=== PATIENT | female | born 1975 | race African-American/Black ===

== ENCOUNTER 2019-02-23 06:34 | Day surgery (SDC) | payer OTHER ==
[2019-02-23] MEDS ORDERED: Midazolam 1 MG/ML 2 ML SDV ONE (07:08)
[2019-02-23] MEDS ORDERED: Propofol 200 MG/20 ML SDV ONE (07:08)
[2019-02-23] MEDS ORDERED: fentaNYL 250 MCG/5 ML SDV ONE (07:08)
--- NOTE | 2019-02-23 07:21 | PCM.PREANE ---
Preanesthetic Assessment - Anesthesia/Transfusion/Family Hx Anesthesia History: Prior Anesthesia Without Reaction Family History of Anesthesia Reaction: No Transfusion History: No Prior Transfusion(s) Intubation History: Unknown - Review of Systems General: No Symptoms Pulmonary: No Symptoms Cardiovascular: No Symptoms Gastrointestinal: No Symptoms Neurological: No Symptoms Other: Reports: None - Physical Assessment Vital Signs: Last Vital Signs Temp 36.3 C 02/23/19 06:51 Pulse 72 02/23/19 06:51 Resp 16 02/23/19 06:51 BP 129/86 02/23/19 06:51 Pulse Ox 98 02/23/19 06:51 Height: 5 ft 5 in Weight: 82.554 kg ASA Class: 2 Mental Status: Alert & Oriented x3 Airway Class: Mallampati = 1 Dentition: Reports: Normal Dentition Thyro-Mental Finger Breadths: 3 Mouth Opening Finger Breadths: 3 ROM/Head Extension: Full Lungs: Clear to Auscultation, Normal Respiratory Effort Cardiovascular: Regular Rate, Regular Rhythm - Lab Values: Laboratory Last Values WBC 4.66 K/uL (4.0-11.0) 02/23/19 07:02 RBC 4.09 M/uL (4.30-5.90) L 02/23/19 07:02 Hgb 12.0 g/dL (12.0-16.0) 02/23/19 07:02 Hct 35.9 % (36.0-46.0) L 02/23/19 07:02 MCV 87.8 fL (80.0-98.0) 02/23/19 07:02 MCH 29.3 pg (27.0-32.0) 02/23/19 07:02 MCHC 33.4 g/dL (31.0-37.0) 02/23/19 07:02 RDW Std Deviation 41.2 fl (28.0-62.0) 02/23/19 07:02 RDW Coeff of Marisol 13 % (11.0-15.0) 02/23/19 07:02 Plt Count 349 K/uL (150-400) 02/23/19 07:02 MPV 9.10 fL (7.40-12.00) 02/23/19 07:02 Neut % (Auto) 48.9 % (48.0-80.0) 02/23/19 07:02 Lymph % (Auto) 35.0 % (16.0-40.0) 02/23/19 07:02 [place] % (Auto) 9.9 % (0.0-15.0) 02/23/19 07:02 Eos % (Auto) 5.6 % (0.0-7.0) 02/23/19 07:02 Baso % (Auto) 0.6 % (0.0-1.5) 02/23/19 07:02 Neut # (Auto) 2.3 K/uL (1.4-5.7) 02/23/19 07:02 Lymph # (Auto) 1.6 K/uL (0.6-2.4) 02/23/19 07:02 [place] # (Auto) 0.5 K/uL (0.0-0.8) 02/23/19 07:02 Eos # (Auto) 0.3 K/uL (0.0-0.7) 02/23/19 07:02 Baso # (Auto) 0.0 K/uL (0.0-0.1) 02/23/19 07:02 Nucleated RBC % 0.0 /100WBC 02/23/19 07:02 Nucleated RBCs # 0 K/uL 02/23/19 07:02 - Allergies Allergies/Adverse Reactions: Allergies Allergy/AdvReac Type Severity Reaction Status Date / Time No Known Allergies Allergy Verified 02/23/19 06:57 - Blood Blood Available: No - Anesthesia Plan Pre-Op Medication Ordered: None - Acknowledgements Anesthesia Type Planned: General Anesthesia Pt an Appropriate Candidate for the Planned Anesthesia: Yes Alternatives and Risks of Anesthesia Discussed w Pt/Guardian: Yes Pt/Guardian Understands and Agrees with Anesthesia Plan: Yes PreAnesthesia Questionnaire HEENT History: Reports: Other (See Below) Other HEENT History: wears glasses Cardiovascular History: Reports: Hypertension Respiratory History: Reports: None Gastrointestinal History: Reports: None Genitourinary History: Reports: None CLINICAL OPERATIONS MANAGER History: Reports: Fibroids, Musculoskeletal History: Reports: None Neurological History: Reports: None Psychiatric History: Reports: None Endocrine/Metabolic History: Reports: Obesity/BMI 30+ Hematologic History: Reports: None Immunologic History: Reports: None Oncologic (Cancer) History: Reports: None Dermatologic History: Reports: None - Past Surgical History Head Surgeries/Procedures: Reports: None HEENT Surgical History: Reports: None Cardiovascular Surgical History: Reports: None Respiratory Surgical History: Reports: None GI Surgical History: Reports: None Female Surgical History: Reports: None Endocrine Surgical History: Reports: None Neurological Surgical History: Reports: None Musculoskeletal Surgical History: Reports: Other (See Below) Other Musculoskeletal Surgeries/Procedures:: calcified bone removed from ouside of scalp Oncologic Surgical History: Reports: None Dermatological Surgical History: Reports: None - SUBSTANCE USE Smoking Status *Q: Never Smoker Recreational Drug Use History: No - HOME MEDS Home Medications: Home Meds Copper [Paragard T 380-A] 1 device VAG ONETIME 02/17/19 [History] amLODIPine Besylate [Amlodipine Besylate] 10 mg PO DAILY 02/17/19 [History] - CURRENT (IN HOUSE) MEDS Current Meds: Current Medications Discontinued Medications Fentanyl (Sublimaze) Confirm Administered Dose 250 mcg .ROUTE .STK-MED ONE Stop: 02/23/19 07:09 Midazolam HCl (Versed 1 Mg/Ml) Confirm Administered Dose 2 mg .ROUTE .STK-MED ONE Stop: 02/23/19 07:09 Propofol (Diprivan 20 Ml) Confirm Administered Dose 200 mg .ROUTE .STK-MED ONE Stop: 02/23/19 07:09
[2019-02-23] MEDS ORDERED: Rocuronium 100 MG/10 ML Syringe ONE (07:25)
[2019-02-23] MEDS ORDERED: Methylene Blue 50 MG/10 ML Ampule ONE (07:25)
[2019-02-23] MEDS ORDERED: Ondansetron 4 MG/2 ML SDV ONE (07:26)
[2019-02-23] MEDS ORDERED: Bupivacaine 0.25% 10 ML SDV ONE (07:26)
[2019-02-23] MEDS ORDERED: Dexamethasone 4 MG/ML 5 ML MDV ONE (07:26)
[2019-02-23] MEDS ORDERED: Fluorescein 5 ML Vial ONE (07:26)
[2019-02-23 07:28] LABS: BLOOD UREA NITROGEN,BUN 12 mg/dL (7.0-18.0); CARBON DIOXIDE,CO2 26.5 mmol/L (21.0-32.0); CHLORIDE,CL 107 mmol/L (98-107); GLUCOSE RANDOM 85 mg/dL (74-106); POTASSIUM,K 3.3 mmol/L (3.5-5.1); SODIUM,NA 142 mmol/L (136-145)
[2019-02-23] MEDS ORDERED: Glycopyrrolate 0.2 MG/ML SDV ONE ×2 (07:28→09:17)
[2019-02-23] MEDS ORDERED: Neostigmine Methylsulfate 1 MG/ML 5 ML Syringe ONE (07:28)
[2019-02-23] MEDS ORDERED: Octyl 2-Cyanoacrylate 1 Tube ONE ×3 (07:33→13:36)
[2019-02-23] MEDS ORDERED: ceFAZolin 1 GM Vial ONE (07:39)
[2019-02-23] MEDS ORDERED: Sodium Chloride 0.9% 20 ML ONE ×3 (07:40→13:36)
[2019-02-23] MEDS ORDERED: Sodium Chloride 0.9% 2.5 ML Syringe FLUSH PRN (07:57)
[2019-02-23] MEDS ORDERED: Sodium Chloride 0.9% 10 ML Syringe FLUSH PRN (07:57)
[2019-02-23] MEDS ORDERED: Sodium Chloride 0.9% 10 ML SDV IV PRN (07:57)
[2019-02-23] MEDS ORDERED: Phenylephrine/Normal Saline 100 MCG/ML 10 ML Syringe ONE (08:32)
[2019-02-23] MEDS ORDERED: Phenylephrine 1% 10 MG/ML SDV ONE (09:14)
[2019-02-23] MEDS ORDERED: fentaNYL 100 MCG/2 ML SDV IVPUSH PRN (12:12)
--- NOTE | 2019-02-23 13:27 | PCM.OPNOTE ---
- General Post-Op/Procedure Note Date of Surgery/Procedure: 02/23/19 Operative Procedure(s): Ventral hernia repair, umbilical hernia repair Findings: Ventral hernia to the right of midline. Hernia sac was large and contained small bowel. Able to be reduced safely into abdomen. Fascial defect measured 1 cm. 5mm umbilical defect. Pre Op Diagnosis: Ventral hernia, umbilical hernia Post-Op Diagnosis: same Anesthesia Technique: MAC Primary Surgeon: Beverly Silva Fluid Replacement, Intraop: 1,400 EBL in mLs: 5 Condition: Good
[2019-02-23] MEDS ORDERED: HYDROmorphone 2 MG/ML Syringe ONE (13:35)
[2019-02-23] MEDS ORDERED: Ondansetron 4 MG/2 ML SDV IVPUSH PRN (14:18)
[2019-02-23] MEDS ORDERED: Acetaminophen/oxyCODONE 325-5 MG Tab PO PRN (14:18)
[2019-02-23] MEDS ORDERED: Morphine 4 MG/ML Syringe IVPUSH PRN (14:18)
[2019-02-23] MEDS ORDERED: Promethazine 25 MG/ML SDV IM PRN (14:18)
[2019-02-23] MEDS ORDERED: Ketorolac 30 MG/ML SDV IVPUSH ONE (14:18)
[2019-02-23] MEDS ORDERED: Ketorolac 30 MG/ML SDV IVPUSH PRN (14:18)
--- NOTE | 2019-02-23 14:29 | PCM.OPNOTE ---
- General Post-Op/Procedure Note Date of Surgery/Procedure: 02/23/19 Operative Procedure(s): Repair of Ventral hernia defect - Dr Silva. Repair of Umbilical hernia defect - Dr Silva/Nimesh. Laparoscopic Hysterectomy. Bilateral salphingectomy. Left oophorectomy. Cystoscopy Findings: Laparoscopy - 10 cm fibroid uterus ( multiple subserosa fibroid) Intact Bladder , Bilateral ureteral jets Left dormoid cyst _ with sebaceous content Pre Op Diagnosis: Abnormal uterine bleeding secondary to fibroid uterus. Left Dermoid cyst - 5cm. Ventral and Umbilical hernia Post-Op Diagnosis: same Anesthesia Technique: General ET Tube Primary Surgeon: Lexii Brooks Secondary Surgeon: Ayaz Wooten Pathology: Uterus , tubes , Left ovaries Fluid Replacement, Intraop: 2,200 Output, Urine Amount: 600 EBL in mLs: 200 Complications: None Condition: Good Free Text/Narrative:: Intake & Output 02/22/19 02/23/19 02/23/19 22:59 06:59 14:59 Intake Total 1400 Balance 1400
[2019-02-23] MEDS: Metoclopramide 10 MG/2 ML SDV IVPUSH SCH ×2 (14:57→22:14)
--- NOTE | 2019-02-23 15:02 | PCM.SN ---
- Free Text/Narrative Note: I was called bedside after the case to evaluate patient. She was complaining of left upper extremity tenderness where the blood pressure cuff was during the case. She felt weak overall. Her vitals were stable in PACU. She was awake and alert. She had no sensory deficits. Her flexion and extension were intact on both upper extremities. She had FROM of both wrists and hands. Radial pulses were strong bilaterally. She complains of subjective discomfort with flexion of her left bicep. Will continue to monitor her LUE. No blood pressure measurements or draws from the left arm as a precaution. Ok to go to floor.
--- NOTE | 2019-02-23 15:32 | PCM.POSTAN ---
POST ANESTHESIA ASSESSMENT - MENTAL STATUS Mental Status: Alert, Oriented - VITAL SIGNS Vital Signs: Last Vital Signs Temp 36.7 C 02/23/19 14:03 Pulse 72 02/23/19 15:12 Resp 12 02/23/19 15:12 BP 125/75 02/23/19 15:12 Pulse Ox 96 02/23/19 15:12 - RESPIRATORY Respiratory Status: Respiratory Rate WNL, Airway Patent, O2 Saturation Stable - CARDIOVASCULAR CV Status: Pulse Rate WNL, Blood Pressure Stable - GASTROINTESTINAL GI Status: No Symptoms - PAIN Pain Score: 5 - POST OP HYDRATION Hydration Status: Adequate & Stable - OBSERVATIONS Free Text/Narrative:: generalized weakness otherwise no problems
[2019-02-23] MEDS ORDERED: Acetaminophen 500 MG Tab PO ONE (18:00)
[2019-02-23] MEDS ORDERED: Gabapentin 300 MG Cap PO ONE (19:24)
[2019-02-23] MEDS: Acetaminophen/oxyCODONE 325-5 MG Tab PO PRN (22:23)
[2019-02-24] MEDS ORDERED: Ibuprofen 800 MG Tab PO ONE (01:00)
[2019-02-24] MEDS: Acetaminophen/oxyCODONE 325-5 MG Tab PO PRN (03:57)
[2019-02-24] MEDS: Metoclopramide 10 MG/2 ML SDV IVPUSH SCH (05:43)
[2019-02-24 06:32] LABS: BLOOD UREA NITROGEN,BUN 14 mg/dL (7.0-18.0); CARBON DIOXIDE,CO2 25.5 mmol/L (21.0-32.0); CHLORIDE,CL 106 mmol/L (98-107); GLUCOSE RANDOM 87 mg/dL (74-106); POTASSIUM,K 3.5 mmol/L (3.5-5.1); SODIUM,NA 141 mmol/L (136-145)
[2019-02-24] MEDS ORDERED: Sodium Chloride 0.9% 1,000 ML IV ONE (07:31)
--- NOTE | 2019-02-24 08:40 | PCM48HPAN ---
Post Anesthesia Note - EVALUATION WITHIN 48HRS OF ANESTHETIC Vital Signs in Normal Range: Yes Patient Participated in Evaluation: Yes Respiratory Function Stable: Yes Airway Patent: Yes Hydration Status Stable: Yes Pain Control Satisfactory: Yes Nausea and Vomiting Control Satisfactory: Yes Mental Status Recovered: Yes Vital Signs: Last Vital Signs Temp 36.5 C 02/24/19 07:15 Pulse 68 02/24/19 07:15 Resp 16 02/24/19 07:15 BP 112/64 02/24/19 07:15 Pulse Ox 94 L 02/24/19 07:15 - COMMENTS/OBSERVATIONS Free Text/Narrative:: Anes Note This patietn reported significant pain, numbness and weakness of left shoulder and left arm upon emerging from anesthesia. However, these symptoms have resolved this morning. Hand grasps left and right are strong and equal. Range of motion right and left arm are normal. Sensation of right and left arm are normal. No obvious continued neurological issues of right or left arm or shoulder. 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
--- NOTE | 2019-02-24 09:05 | PCM.SURGPN ---
- General Info Date of Service: 02/24/19 Date of Surgery/Procedure: 02/23/19 POD#: 1 Functional Status: Reports: Pain Controlled, Tolerating Diet, Ambulating, Other (No LUE arm discomfort swelling or pain ). Denies: Urinating (has not urinated since last night when jenkins catheter was removed. Has been drinking water. ) - Review of Systems General: Reports: No Symptoms HEENT: Reports: No Symptoms Pulmonary: Reports: No Symptoms Cardiovascular: Reports: No Symptoms Gastrointestinal: Reports: No Symptoms Genitourinary: Reports: No Symptoms Musculoskeletal: Reports: No Symptoms - Patient Data Vitals - Most Recent: Last Vital Signs Temp 36.5 C 02/24/19 07:15 Pulse 68 02/24/19 07:15 Resp 16 02/24/19 07:15 BP 112/64 02/24/19 07:15 Pulse Ox 94 L 02/24/19 07:15 Weight - Most Recent: 82.554 kg I&O - Last 24 Hours: Intake & Output 02/23/19 02/24/19 02/24/19 22:59 06:59 14:59 Intake Total 2750 950 Output Total 530 650 Balance 2220 300 Lab Results Last 24 Hrs: Laboratory Results - last 24 hr 02/24/19 02/24/19 Range/Units 05:30 05:30 WBC 10.90 (4.0-11.0) K/uL RBC 3.82 L (4.30-5.90) M/uL Hgb 11.2 L (12.0-16.0) g/dL Hct 34.4 L (36.0-46.0) % MCV 90.1 (80.0-98.0) fL MCH 29.3 (27.0-32.0) pg MCHC 32.6 (31.0-37.0) g/dL RDW Std Deviation 43.3 (28.0-62.0) fl RDW Coeff of Marisol 13 (11.0-15.0) % Plt Count 334 (150-400) K/uL MPV 9.50 (7.40-12.00) fL Neut % (Auto) 74.7 (48.0-80.0) % Lymph % (Auto) 15.7 L (16.0-40.0) % [place] % (Auto) 9.2 (0.0-15.0) % Eos % (Auto) 0.2 (0.0-7.0) % Baso % (Auto) 0.2 (0.0-1.5) % Neut # (Auto) 8.2 H (1.4-5.7) K/uL Lymph # (Auto) 1.7 (0.6-2.4) K/uL [place] # (Auto) 1.0 H (0.0-0.8) K/uL Eos # (Auto) 0.0 (0.0-0.7) K/uL Baso # (Auto) 0.0 (0.0-0.1) K/uL Nucleated RBC % 0.0 /100WBC Nucleated RBCs # 0 K/uL Sodium 141 (136-145) mmol/L Potassium 3.5 (3.5-5.1) mmol/L Chloride 106 (98-107) mmol/L Carbon Dioxide 25.5 (21.0-32.0) mmol/L BUN 14 (7.0-18.0) mg/dL Creatinine 0.9 (0.6-1.0) mg/dL Est Cr Clr Drug Dosing 73.27 mL/min Estimated GFR (MDRD) > 60.0 ml/min Glucose 87 (74-106) mg/dL Calcium 8.3 L (8.5-10.1) mg/dL Med Orders - Current: Current Medications Ketorolac Tromethamine (Toradol) 30 mg IVPUSH Q6H PRN PRN Reason: Pain (severe 7-10) Stop: 02/28/19 14:18 Metoclopramide HCl (Reglan) 10 mg IVPUSH Q8H [facility] Last Admin: 02/24/19 05:43 Dose: 10 mg Morphine Sulfate (Morphine) 4 mg IVPUSH Q2H PRN PRN Reason: Pain (severe 7-10) Last Admin: 02/23/19 16:50 Dose: 4 mg Ondansetron HCl (Zofran) 4 mg IVPUSH Q6H PRN PRN Reason: Nausea/Vomiting Oxycodone/Acetaminophen (Percocet 325-5 Mg) 1 tab PO Q4H PRN PRN Reason: Pain (moderate 4-6) Oxycodone/Acetaminophen (Percocet 325-5 Mg) 2 tab PO Q4H PRN PRN Reason: Pain (moderate 4-6) Last Admin: 02/24/19 03:57 Dose: 2 tab Promethazine HCl (Phenergan) 25 mg IM Q6H PRN PRN Reason: Nausea/Vomiting Sodium Chloride (Saline Flush) 10 ml FLUSH ASDIRECTED PRN PRN Reason: Keep Vein Open Sodium Chloride (Saline Flush) 2.5 ml FLUSH ASDIRECTED PRN PRN Reason: Keep Vein Open Sodium Chloride (Normal Saline) 10 ml IV ASDIRECTED PRN PRN Reason: IV Use Discontinued Medications Acetaminophen (Tylenol Extra Strength) 1,000 mg PO ONETIME ONE Stop: 02/23/19 18:01 Last Admin: 02/23/19 18:14 Dose: 1,000 mg Bupivacaine HCl (Sensorcaine-Mpf 0.25%) Confirm Administered Dose 30 ml .ROUTE .STK-MED ONE Stop: 02/23/19 07:27 Cefazolin Sodium (Ancef) Confirm Administered Dose 2 gm .ROUTE .STK-MED ONE Stop: 02/23/19 07:40 Dexamethasone (Dexamethasone) Confirm Administered Dose 20 mg .ROUTE .STK-MED ONE Stop: 02/23/19 07:27 Fentanyl (Sublimaze) Confirm Administered Dose 250 mcg .ROUTE .STK-MED ONE Stop: 02/23/19 07:09 Fentanyl (Sublimaze) 50 mcg IVPUSH Q5M PRN PRN Reason: Pain (severe 7-10) Stop: 02/23/19 15:00 Fluorescein Sodium (Ak-Fluor) Confirm Administered Dose 5 ml .ROUTE .STK-MED ONE Stop: 02/23/19 07:27 Gabapentin (Neurontin) 600 mg PO ONETIME ONE Stop: 02/23/19 19:25 Last Admin: 02/23/19 20:00 Dose: 600 mg Glycopyrrolate (Robinul) Confirm Administered Dose 0.4 mg .ROUTE .STK-MED ONE Stop: 02/23/19 07:29 Glycopyrrolate (Robinul) Confirm Administered Dose 0.2 mg .ROUTE .STK-MED ONE Stop: 02/23/19 09:18 Hydromorphone HCl (Dilaudid) Confirm Administered Dose 2 mg .ROUTE .STK-MED ONE Stop: 02/23/19 13:36 Sodium Chloride (Normal Saline) Confirm Administered Dose 20 mls @ as directed .ROUTE .STK-MED ONE Stop: 02/23/19 07:41 Sodium Chloride (Normal Saline) Confirm Administered Dose 20 mls @ as directed .ROUTE .STK-MED ONE Stop: 02/23/19 10:34 Sodium Chloride (Normal Saline) Confirm Administered Dose 20 mls @ as directed .ROUTE .STK-MED ONE Stop: 02/23/19 13:37 Sodium Chloride (Normal Saline) 1,000 mls @ 1,000 mls/hr IV .Bolus ONE Stop: 02/24/19 08:30 Last Admin: 02/24/19 08:05 Dose: 1,000 mls/hr Ibuprofen (Motrin) 800 mg PO ONETIME ONE Stop: 02/24/19 01:01 Ketorolac Tromethamine (Toradol) 30 mg IVPUSH ONETIME ONE Stop: 02/23/19 14:19 Last Admin: 02/23/19 14:50 Dose: 30 mg Lidocaine HCl (Xylocaine-Mpf 1%) Confirm Administered Dose 5 ml .ROUTE .STK-MED ONE Stop: 02/23/19 07:26 Methylene Blue (Provayblue) Confirm Administered Dose 50 mg .ROUTE .STK-MED ONE Stop: 02/23/19 07:26 Midazolam HCl (Versed 1 Mg/Ml) Confirm Administered Dose 2 mg .ROUTE .STK-MED ONE Stop: 02/23/19 07:09 Neostigmine Methylsulfate (Neostigmine) Confirm Administered Dose 5 mg .ROUTE .STK-MED ONE Stop: 02/23/19 07:29 Octyl Cyanoacrylate (Dermabond Advance) Confirm Administered Dose 1 applic .ROUTE .STK-MED ONE Stop: 02/23/19 07:34 Octyl Cyanoacrylate (Dermabond Advance) Confirm Administered Dose 1 applic .ROUTE .STK-MED ONE Stop: 02/23/19 08:51 Octyl Cyanoacrylate (Dermabond Advance) Confirm Administered Dose 1 applic .ROUTE .STK-MED ONE Stop: 02/23/19 13:37 Ondansetron HCl (Zofran) Confirm Administered Dose 4 mg .ROUTE .STK-MED ONE Stop: 02/23/19 07:27 Phenylephrine HCl (Phenylephrine In Ns 100 Mcg/Ml) Confirm Administered Dose 1 mg .ROUTE .STK-MED ONE Stop: 02/23/19 08:33 Phenylephrine HCl (Casey-Synephrine) Confirm Administered Dose 10 mg .ROUTE .STK- MED ONE Stop: 02/23/19 09:15 Propofol (Diprivan 20 Ml) Confirm Administered Dose 200 mg .ROUTE .STK-MED ONE Stop: 02/23/19 07:09 Rocuronium Evans (Zemuron) Confirm Administered Dose 100 mg .ROUTE .STK-MED ONE Stop: 02/23/19 07:26 Succinylcholine Chloride (Succinylcholine Chloride) Confirm Administered Dose 200 mg .ROUTE .STK-MED ONE Stop: 02/23/19 07:26 - Exam Wound/Incisions: Dressing Dry and Intact, No Drainage General: Alert, Oriented HEENT: Pupils Equal, Pupils Reactive Lungs: Clear to Auscultation Cardiovascular: Regular Rhythm GI/Abdominal Exam: Soft, Non-Tender, No Distention, No Mass Sepsis Event Note - Evaluation Sepsis Screening Result: No Definite Risk - Focused Exam Vital Signs: Vital Signs Temp Pulse Resp BP Pulse Ox 02/24/19 07:15 36.5 C 68 16 112/64 94 L 02/24/19 04:00 36.8 C 73 16 103/62 95 02/23/19 23:12 36.6 C 73 16 105/60 98 Date Exam was Performed: 02/24/19 Time Exam was Performed: 08:59 - Problem List & Annotations (1) Ventral hernia SNOMED Code(s): 001191534 Code(s): K43.9 - VENTRAL HERNIA WITHOUT OBSTRUCTION OR GANGRENE Status: Acute Current Visit: Yes (2) Leg skin lesion, right SNOMED Code(s): 134594196, 849234303 Code(s): L98.9 - DISORDER OF THE SKIN AND SUBCUTANEOUS TISSUE, UNSPECIFIED Status: Acute Current Visit: Yes (3) Umbilical hernia SNOMED Code(s): 323538192 Code(s): K42.9 - UMBILICAL HERNIA WITHOUT OBSTRUCTION OR GANGRENE Status: Acute Current Visit: Yes (4) Dermoid cyst SNOMED Code(s): 290897862 Code(s): D36.9 - BENIGN NEOPLASM, UNSPECIFIED SITE Status: Acute Current Visit: Yes (5) S/P laparoscopic hysterectomy SNOMED Code(s): 553703199, 053337534, 513283190 Code(s): Z90.710 - ACQUIRED ABSENCE OF BOTH CERVIX AND UTERUS Status: Acute Current Visit: Yes - Problem List Review Problem List Initiated/Reviewed/Updated: Yes - My Orders Last 24 Hours: Active Orders 24 hr Category Date Time Status Patient Status [ADT] Routine ADT 02/23/19 14:18 Active Antiembolic Devices [RC] PER UNIT ROUTINE Care 02/23/19 14:19 Active Communication Order [RC] DAILY Care 02/23/19 15:03 Active Notify Provider Intake and Out [RC] ASDIRECTED Care 02/23/19 14:18 Active Notify Provider Vital Signs [RC] ASDIRECTED Care 02/23/19 14:18 Active Oxygen Therapy [RC] ASDIRECTED Care 02/23/19 14:18 Active RT Incentive Spirometry [RC] Q2HWA Care 02/23/19 14:18 Active Up With Assistance [RC] PER UNIT ROUTINE Care 02/23/19 14:18 Active Up ad Tess [RC] PER UNIT ROUTINE Care 02/23/19 14:18 Active Urinary Catheter Removal [RC] Per Unit Routine Care 02/23/19 14:18 Active Acetaminophen/oxyCODONE [Percocet 325-5 MG] Med 02/23/19 14:18 Active 1 tab PO Q4H PRN Acetaminophen/oxyCODONE [Percocet 325-5 MG] Med 02/23/19 14:18 Active 2 tab PO Q4H PRN Ketorolac [Toradol] Med 02/23/19 14:18 Active 30 mg IVPUSH Q6H PRN Metoclopramide [Reglan] Med 02/23/19 14:30 Active 10 mg IVPUSH Q8H Morphine Med 02/23/19 14:18 Active 4 mg IVPUSH Q2H PRN Ondansetron [Zofran] Med 02/23/19 14:18 Active 4 mg IVPUSH Q6H PRN Promethazine [Phenergan] Med 02/23/19 14:18 Active 25 mg IM Q6H PRN Peripheral IV Discontinue [OM.PC] Routine Oth 02/23/19 14:18 Ordered Sequential Compression Device [OM.PC] Per Unit Routine Oth 02/23/19 14:18 Ordered Resuscitation Status Routine Resus Stat 02/23/19 14:18 Ordered Medication Orders Ketorolac Tromethamine (Toradol) 30 mg IVPUSH Q6H PRN PRN Reason: Pain (severe 7-10) Stop: 02/28/19 14:18 Metoclopramide HCl (Reglan) 10 mg IVPUSH Q8H [facility] Last Admin: 02/24/19 05:43 Dose: 10 mg Admin: 02/23/19 22:14 Dose: 10 mg Admin: 02/23/19 14:57 Dose: 10 mg Morphine Sulfate (Morphine) 4 mg IVPUSH Q2H PRN PRN Reason: Pain (severe 7-10) Last Admin: 02/23/19 16:50 Dose: 4 mg Ondansetron HCl (Zofran) 4 mg IVPUSH Q6H PRN PRN Reason: Nausea/Vomiting Oxycodone/Acetaminophen (Percocet 325-5 Mg) 1 tab PO Q4H PRN PRN Reason: Pain (moderate 4-6) Oxycodone/Acetaminophen (Percocet 325-5 Mg) 2 tab PO Q4H PRN PRN Reason: Pain (moderate 4-6) Last Admin: 02/24/19 03:57 Dose: 2 tab Admin: 02/23/19 22:23 Dose: 2 tab Promethazine HCl (Phenergan) 25 mg IM Q6H PRN PRN Reason: Nausea/Vomiting Sodium Chloride (Saline Flush) 10 ml FLUSH ASDIRECTED PRN PRN Reason: Keep Vein Open Sodium Chloride (Saline Flush) 2.5 ml FLUSH ASDIRECTED PRN PRN Reason: Keep Vein Open Sodium Chloride (Normal Saline) 10 ml IV ASDIRECTED PRN PRN Reason: IV Use - Plan Plan (Free Text/Narrative):: I will give patient a 1L fluid bolus this am. She did not have fluids running last night and is likely a little dry this morning. Labs show stable BUN/Cr. Hgb is slightly below normal likely due to surgical blood loss. Patient otherwise feeling well. Can be discharged home per gynecology. Post operative instructions for surgery: Pain: Po narcotics per gynecology. Ok with ibuprofen from my standpoint starting today. Lifting restrictions: No lifting >10lb for 6 weeks after surgery. Bandages: Leave dressings on until tomorrow morning. Ok to remove after that. There is dermabond over my incisions. Leave in place for one week then ok to start picking off after that. Ok to shower tomorrow morning after removing dressings. No soaking tub bath or swimming for 2 weeks. Diet: As tolerated No driving for one week. Follow up in 2 weeks in my clinic or sooner if concerns. Appreciate gynecology's coordination in care of this patient.
--- NOTE | 2019-02-24 11:03 | PCM.SURGPN ---
- General Info Date of Service: 02/24/19 Date of Surgery/Procedure: 02/23/19 POD#: 1 Post-Op Diagnosis: AUB secondary to fibroid. Left dermoid cyst. Ventral and Umbilical hernia Functional Status: Reports: Pain Controlled, Tolerating Diet, Ambulating, Urinating - Review of Systems General: Reports: No Symptoms HEENT: Reports: No Symptoms Pulmonary: Reports: No Symptoms Cardiovascular: Reports: No Symptoms Gastrointestinal: Reports: No Symptoms Genitourinary: Reports: No Symptoms Musculoskeletal: Reports: No Symptoms Skin: Reports: No Symptoms Neurological: Reports: No Symptoms Psychiatric: Reports: No Symptoms - Patient Data Vitals - Most Recent: Last Vital Signs Temp 36.5 C 02/24/19 07:15 Pulse 68 02/24/19 07:15 Resp 16 02/24/19 07:15 BP 112/64 02/24/19 07:15 Pulse Ox 94 L 02/24/19 07:15 Weight - Most Recent: 82.554 kg I&O - Last 24 Hours: Intake & Output 02/23/19 02/24/19 02/24/19 22:59 06:59 14:59 Intake Total 2750 950 Output Total 530 650 Balance 2220 300 Lab Results Last 24 Hrs: Laboratory Results - last 24 hr 02/24/19 02/24/19 Range/Units 05:30 05:30 WBC 10.90 (4.0-11.0) K/uL RBC 3.82 L (4.30-5.90) M/uL Hgb 11.2 L (12.0-16.0) g/dL Hct 34.4 L (36.0-46.0) % MCV 90.1 (80.0-98.0) fL MCH 29.3 (27.0-32.0) pg MCHC 32.6 (31.0-37.0) g/dL RDW Std Deviation 43.3 (28.0-62.0) fl RDW Coeff of Marisol 13 (11.0-15.0) % Plt Count 334 (150-400) K/uL MPV 9.50 (7.40-12.00) fL Neut % (Auto) 74.7 (48.0-80.0) % Lymph % (Auto) 15.7 L (16.0-40.0) % Preble % (Auto) 9.2 (0.0-15.0) % Eos % (Auto) 0.2 (0.0-7.0) % Baso % (Auto) 0.2 (0.0-1.5) % Neut # (Auto) 8.2 H (1.4-5.7) K/uL Lymph # (Auto) 1.7 (0.6-2.4) K/uL Preble # (Auto) 1.0 H (0.0-0.8) K/uL Eos # (Auto) 0.0 (0.0-0.7) K/uL Baso # (Auto) 0.0 (0.0-0.1) K/uL Nucleated RBC % 0.0 /100WBC Nucleated RBCs # 0 K/uL Sodium 141 (136-145) mmol/L Potassium 3.5 (3.5-5.1) mmol/L Chloride 106 (98-107) mmol/L Carbon Dioxide 25.5 (21.0-32.0) mmol/L BUN 14 (7.0-18.0) mg/dL Creatinine 0.9 (0.6-1.0) mg/dL Est Cr Clr Drug Dosing 73.27 mL/min Estimated GFR (MDRD) > 60.0 ml/min Glucose 87 (74-106) mg/dL Calcium 8.3 L (8.5-10.1) mg/dL Med Orders - Current: Current Medications Ketorolac Tromethamine (Toradol) 30 mg IVPUSH Q6H PRN PRN Reason: Pain (severe 7-10) Stop: 02/28/19 14:18 Metoclopramide HCl (Reglan) 10 mg IVPUSH Q8H [facility] Last Admin: 02/24/19 05:43 Dose: 10 mg Morphine Sulfate (Morphine) 4 mg IVPUSH Q2H PRN PRN Reason: Pain (severe 7-10) Last Admin: 02/23/19 16:50 Dose: 4 mg Ondansetron HCl (Zofran) 4 mg IVPUSH Q6H PRN PRN Reason: Nausea/Vomiting Oxycodone/Acetaminophen (Percocet 325-5 Mg) 1 tab PO Q4H PRN PRN Reason: Pain (moderate 4-6) Oxycodone/Acetaminophen (Percocet 325-5 Mg) 2 tab PO Q4H PRN PRN Reason: Pain (moderate 4-6) Last Admin: 02/24/19 03:57 Dose: 2 tab Promethazine HCl (Phenergan) 25 mg IM Q6H PRN PRN Reason: Nausea/Vomiting Sodium Chloride (Saline Flush) 10 ml FLUSH ASDIRECTED PRN PRN Reason: Keep Vein Open Sodium Chloride (Saline Flush) 2.5 ml FLUSH ASDIRECTED PRN PRN Reason: Keep Vein Open Sodium Chloride (Normal Saline) 10 ml IV ASDIRECTED PRN PRN Reason: IV Use Discontinued Medications Acetaminophen (Tylenol Extra Strength) 1,000 mg PO ONETIME ONE Stop: 02/23/19 18:01 Last Admin: 02/23/19 18:14 Dose: 1,000 mg Bupivacaine HCl (Sensorcaine-Mpf 0.25%) Confirm Administered Dose 30 ml .ROUTE .STK-MED ONE Stop: 02/23/19 07:27 Cefazolin Sodium (Ancef) Confirm Administered Dose 2 gm .ROUTE .STK-MED ONE Stop: 02/23/19 07:40 Dexamethasone (Dexamethasone) Confirm Administered Dose 20 mg .ROUTE .STK-MED ONE Stop: 02/23/19 07:27 Fentanyl (Sublimaze) Confirm Administered Dose 250 mcg .ROUTE .STK-MED ONE Stop: 02/23/19 07:09 Fentanyl (Sublimaze) 50 mcg IVPUSH Q5M PRN PRN Reason: Pain (severe 7-10) Stop: 02/23/19 15:00 Fluorescein Sodium (Ak-Fluor) Confirm Administered Dose 5 ml .ROUTE .STK-MED ONE Stop: 02/23/19 07:27 Gabapentin (Neurontin) 600 mg PO ONETIME ONE Stop: 02/23/19 19:25 Last Admin: 02/23/19 20:00 Dose: 600 mg Glycopyrrolate (Robinul) Confirm Administered Dose 0.4 mg .ROUTE .STK-MED ONE Stop: 02/23/19 07:29 Glycopyrrolate (Robinul) Confirm Administered Dose 0.2 mg .ROUTE .STK-MED ONE Stop: 02/23/19 09:18 Hydromorphone HCl (Dilaudid) Confirm Administered Dose 2 mg .ROUTE .STK-MED ONE Stop: 02/23/19 13:36 Sodium Chloride (Normal Saline) Confirm Administered Dose 20 mls @ as directed .ROUTE .STK-MED ONE Stop: 02/23/19 07:41 Sodium Chloride (Normal Saline) Confirm Administered Dose 20 mls @ as directed .ROUTE .STK-MED ONE Stop: 02/23/19 10:34 Sodium Chloride (Normal Saline) Confirm Administered Dose 20 mls @ as directed .ROUTE .STK-MED ONE Stop: 02/23/19 13:37 Sodium Chloride (Normal Saline) 1,000 mls @ 1,000 mls/hr IV .Bolus ONE Stop: 02/24/19 08:30 Last Admin: 02/24/19 08:05 Dose: 1,000 mls/hr Ibuprofen (Motrin) 800 mg PO ONETIME ONE Stop: 02/24/19 01:01 Ketorolac Tromethamine (Toradol) 30 mg IVPUSH ONETIME ONE Stop: 02/23/19 14:19 Last Admin: 02/23/19 14:50 Dose: 30 mg Lidocaine HCl (Xylocaine-Mpf 1%) Confirm Administered Dose 5 ml .ROUTE .STK-MED ONE Stop: 02/23/19 07:26 Methylene Blue (Provayblue) Confirm Administered Dose 50 mg .ROUTE .STK-MED ONE Stop: 02/23/19 07:26 Midazolam HCl (Versed 1 Mg/Ml) Confirm Administered Dose 2 mg .ROUTE .STK-MED ONE Stop: 02/23/19 07:09 Neostigmine Methylsulfate (Neostigmine) Confirm Administered Dose 5 mg .ROUTE .STK-MED ONE Stop: 02/23/19 07:29 Octyl Cyanoacrylate (Dermabond Advance) Confirm Administered Dose 1 applic .ROUTE .STK-MED ONE Stop: 02/23/19 07:34 Octyl Cyanoacrylate (Dermabond Advance) Confirm Administered Dose 1 applic .ROUTE .STK-MED ONE Stop: 02/23/19 08:51 Octyl Cyanoacrylate (Dermabond Advance) Confirm Administered Dose 1 applic .ROUTE .STK-MED ONE Stop: 02/23/19 13:37 Ondansetron HCl (Zofran) Confirm Administered Dose 4 mg .ROUTE .STK-MED ONE Stop: 02/23/19 07:27 Phenylephrine HCl (Phenylephrine In Ns 100 Mcg/Ml) Confirm Administered Dose 1 mg .ROUTE .STK-MED ONE Stop: 02/23/19 08:33 Phenylephrine HCl (Casey-Synephrine) Confirm Administered Dose 10 mg .ROUTE .STK- MED ONE Stop: 02/23/19 09:15 Propofol (Diprivan 20 Ml) Confirm Administered Dose 200 mg .ROUTE .STK-MED ONE Stop: 02/23/19 07:09 Rocuronium Durant (Zemuron) Confirm Administered Dose 100 mg .ROUTE .STK-MED ONE Stop: 02/23/19 07:26 Succinylcholine Chloride (Succinylcholine Chloride) Confirm Administered Dose 200 mg .ROUTE .STK-MED ONE Stop: 02/23/19 07:26 - Exam Wound/Incisions: Dressing Dry and Intact (Abdominal incision c/d/i ( for umbilical and supraumbilical) Right and left lower quadrant incision ) General: Alert HEENT: Pupils Equal Neck: Supple Lungs: Clear to Auscultation Cardiovascular: Regular Rate GI/Abdominal Exam: Normal Bowel Sounds Extremities: Normal Inspection Neurological: No New Focal Deficit Psy/Mental Status: Alert Sepsis Event Note - Evaluation Sepsis Screening Result: No Definite Risk - Focused Exam Vital Signs: Vital Signs Temp Pulse Resp BP Pulse Ox 02/24/19 07:15 36.5 C 68 16 112/64 94 L 02/24/19 04:00 36.8 C 73 16 103/62 95 02/23/19 23:12 36.6 C 73 16 105/60 98 Date Exam was Performed: 02/24/19 Time Exam was Performed: 10:57 - Problem List & Annotations (1) Dermoid cyst SNOMED Code(s): 463675376 Code(s): D36.9 - BENIGN NEOPLASM, UNSPECIFIED SITE Status: Acute Current Visit: Yes (2) S/P laparoscopic hysterectomy SNOMED Code(s): 518820593, 955412390, 890329211 Code(s): Z90.710 - ACQUIRED ABSENCE OF BOTH CERVIX AND UTERUS Status: Acute Current Visit: Yes (3) Umbilical hernia SNOMED Code(s): 431238934 Code(s): K42.9 - UMBILICAL HERNIA WITHOUT OBSTRUCTION OR GANGRENE Status: Acute Current Visit: Yes (4) Ventral hernia SNOMED Code(s): 832261023 Code(s): K43.9 - VENTRAL HERNIA WITHOUT OBSTRUCTION OR GANGRENE Status: Acute Current Visit: Yes - Problem List Review Problem List Initiated/Reviewed/Updated: Yes - My Orders Last 24 Hours: Active Orders 24 hr Category Date Time Status Patient Status [ADT] Routine ADT 02/23/19 14:18 Active Antiembolic Devices [RC] PER UNIT ROUTINE Care 02/23/19 14:19 Active Communication Order [RC] DAILY Care 02/23/19 15:03 Active Notify Provider Intake and Out [RC] ASDIRECTED Care 02/23/19 14:18 Active Notify Provider Vital Signs [RC] ASDIRECTED Care 02/23/19 14:18 Active Oxygen Therapy [RC] ASDIRECTED Care 02/23/19 14:18 Active RT Incentive Spirometry [RC] Q2HWA Care 02/23/19 14:18 Active Up With Assistance [RC] PER UNIT ROUTINE Care 02/23/19 14:18 Active Up ad Tess [RC] PER UNIT ROUTINE Care 02/23/19 14:18 Active Urinary Catheter Removal [RC] Per Unit Routine Care 02/23/19 14:18 Active Acetaminophen/oxyCODONE [Percocet 325-5 MG] Med 02/23/19 14:18 Active 1 tab PO Q4H PRN Acetaminophen/oxyCODONE [Percocet 325-5 MG] Med 02/23/19 14:18 Active 2 tab PO Q4H PRN Ketorolac [Toradol] Med 02/23/19 14:18 Active 30 mg IVPUSH Q6H PRN Metoclopramide [Reglan] Med 02/23/19 14:30 Active 10 mg IVPUSH Q8H Morphine Med 02/23/19 14:18 Active 4 mg IVPUSH Q2H PRN Ondansetron [Zofran] Med 02/23/19 14:18 Active 4 mg IVPUSH Q6H PRN Promethazine [Phenergan] Med 02/23/19 14:18 Active 25 mg IM Q6H PRN Peripheral IV Discontinue [OM.PC] Routine Oth 02/23/19 14:18 Ordered Sequential Compression Device [OM.PC] Per Unit Routine Oth 02/23/19 14:18 Ordered Resuscitation Status Routine Resus Stat 02/23/19 14:18 Ordered Medication Orders Ketorolac Tromethamine (Toradol) 30 mg IVPUSH Q6H PRN PRN Reason: Pain (severe 7-10) Stop: 02/28/19 14:18 Metoclopramide HCl (Reglan) 10 mg IVPUSH Q8H [facility] Last Admin: 02/24/19 05:43 Dose: 10 mg Admin: 02/23/19 22:14 Dose: 10 mg Admin: 02/23/19 14:57 Dose: 10 mg Morphine Sulfate (Morphine) 4 mg IVPUSH Q2H PRN PRN Reason: Pain (severe 7-10) Last Admin: 02/23/19 16:50 Dose: 4 mg Ondansetron HCl (Zofran) 4 mg IVPUSH Q6H PRN PRN Reason: Nausea/Vomiting Oxycodone/Acetaminophen (Percocet 325-5 Mg) 1 tab PO Q4H PRN PRN Reason: Pain (moderate 4-6) Oxycodone/Acetaminophen (Percocet 325-5 Mg) 2 tab PO Q4H PRN PRN Reason: Pain (moderate 4-6) Last Admin: 02/24/19 03:57 Dose: 2 tab Admin: 02/23/19 22:23 Dose: 2 tab Promethazine HCl (Phenergan) 25 mg IM Q6H PRN PRN Reason: Nausea/Vomiting Sodium Chloride (Saline Flush) 10 ml FLUSH ASDIRECTED PRN PRN Reason: Keep Vein Open Sodium Chloride (Saline Flush) 2.5 ml FLUSH ASDIRECTED PRN PRN Reason: Keep Vein Open Sodium Chloride (Normal Saline) 10 ml IV ASDIRECTED PRN PRN Reason: IV Use - Assessment Assessment (Free Text/Narrative):: 43yo s/p TLH/BS and Left oophorectomy , Repair of ventral and umbilical hernia , cystosocopy POD1 Patient had upper arm pain and weakness yesterday which is improved Complains of slight discomfort after eating breakfast , no vomiting Patient has voided 150ml after jenkins out , recieved 1L bolus U/O > 30ml per hour Has good pain control , she is ambulating . H/H is stable , Creatinine is stable - Plan Plan (Free Text/Narrative):: Plan Discharge home RLQ and LLQ dressing removed , can remove remaining dressing tomorrow No heavy lifting Nothing in the vagina for 6 weeks Pain cotnrol with Percocet , Mortin and tylenol as needed Follow up at [facility] in 2 and 6 weeks Call [facility] if heavy vaginal bleeding , uncontrolled abdominal pain or vomiting , Fever > 100.[address] Silva's discharge instructions
--- NOTE | 2019-02-24 14:10 | OR ---
SURGEON: ERICKA Wooten MD. DATE OF PROCEDURE:02/23/2019 PREOPERATIVE DIAGNOSES: A 43-year-old with: 1. Abnormal uterine bleeding. 2. Fibroid uterus. 3. Left dermoid cyst. POSTOPERATIVE DIAGNOSES: A 43-year-old with: 1. Abnormal uterine bleeding. 2. Fibroid uterus. 3. Left dermoid cyst. PROCEDURES: Total laparoscopic hysterectomy, bilateral salpingectomy, left oophorectomy. Cystoscopy Surgery by Dr Silva- Repair of ventral hernia and Umbilical Hernia ( seperate dictation) ESTIMATED BLOOD LOSS: 200. IV FLUID: 2200. URINE OUTPUT: 600. PATHOLOGY: Left ovary, uterus, and tubes. NOTES AND FINDING: Fibroid uterus noted and left dermoid cyst. Intact bladder and bilateral ureteral jets COMPLICATION; None BRIEF HISTORY: The patient is a 43-year-old who came in complaining of abnormal uterine bleeding. She was given various conservative options of an IUD and controlled bleeding with OCPs, which the patient declined. The patient also had a CT scan as a result of complaining of hernia, which showed the left dermoid cyst. The patient was consented for total laparoscopic hysterectomy with left oophorectomy. The patient understood the risks, benefits, and alternatives, and she decided to proceed. Procedure was done in tandem with General Surgery, Dr. Silva, as a result of right ventral hernia above the umbilicus and also umbilical hernia. DESCRIPTION OF PROCEDURE: The patient was taken to the operating room where general anesthesia was performed without difficulty. She was prepared and draped under sterile conditions. She was placed in the dorsal lithotomy position with Ethan stirrups. Advincula manipulator was placed in the vagina after exposure of the vagina of the cervix with a speculum. Then, General Surgery started their portion of the surgery, which was the reduction of the hernia and closure of the hernia defect. After General Surgery was done with the repair of the ventral hernia, the umbilical hernia was also located at this point. This was the point the trocar was placed into with a 5 mm trocar. After 5 mm trocar was placed in , pneumoperitoneum was obtained to 15 mmHg. The right and left lower quadrant incisions were made 2 fingerbreadths above and medial to the anterior superior iliac spine. A 5mm trocar was placed at the right and left lower quadrant, this was placed under direct visualization. The patient was then placed in the Trendelenburg position. The dermoid cyst was opened with the aid of Harmonic device and suctioned. The content was suctioned with a Suctioner and was sent for pathology. Slight spillage was noted and the abdomen was copiously irrigated after the witH 3l of sterile water after the procedure. On the left side with the dermoid cyst, the IP ligament was identified and it was sequentially cut and coagulated all the way to the cornua. On that side also, the round ligament was coagulated and cut. This was used to expose the broad ligament and the bladder flap was then created. The bladder was with the aid of the Harmonic device to expose the cervicovaginal junction. The uterine vessel was then coagulated and cut. The same was done on the right side. The fallopian tube was sequentially cut and coagulated to separate it from the ovary, pelvic peritoneum, and the ligaments. The tube was all the way to the cornua of the uterus. The left tube was detached in the same fashion. The round ligament was transected two-third from the uterus and one-third from the pelvic sidewall. The anterior and posterior broad ligaments were to expose the uterine artery. The uterine artery was skeletonized. Bladder flap was created with the aid of the Harmonic scalpel on the right side. The uterine vessels were coagulated at the cervicovaginal junction and then lateralized with Advincula. The Advincula cup was then entered and a circumferential incision was made between the cervix and the vagina with the Harmonic scalpel. This was done on the right and left. With the circumferential incision around the colpotomy cup, the uterus was detached. Attention was then placed to the perineum where the uterus and the ovary that was detached was removed. The uterosacral ligament was identified. The Conley stitch was made with 2-0 Vicryl and was placed from the posterior vaginal wall to the uterosacral over the pelvic peritoneum and the cul-de-sac to the other uterosacral ligaments. Then, the colpotomy cup was closed anteriorly and posteriorly with interlocking stitch with 0 Polysorb. Sodium fluorescein was given. Cystoscopy was then performed. Bilateral ureteral jet was observed and the bladder was noted to be intact. Then, a sponge stick was placed into the vagina. Then, attention was placed into the abdomen. The abdomen, as I said before, was copiously irrigated and hemostasis was noted. It was irrigated with 3 L of sterile water. The pneumoperitoneum was reduced to 5 mmHg and noted to be hemostatic. The gas was deflated and all the trocars were removed. The laparoscopic incision on the right and left was closed with 3-0 Monocryl. The umbilical incision was closed in layers. The first was the fascia, which was apposed with Ethicon and the subcutaneous fat was closed with 3-0 Vicryl and the subcutaneous skin was closed with 3-0 Monocryl. The patient tolerated the procedure well and all instrument and pad counts were correct. The patient was taken to the recovery room in stable condition. FEDERICO LEE /[id number] MTDD
--- NOTE | 2019-02-26 00:48 | OR ---
SURGEON: AUREA BECKWITH MD DATE OF PROCEDURE: 02/23/2019 PREOPERATIVE DIAGNOSES: 1. Ventral hernia, incarcerated. 2. Umbilical hernia, reducible. 3. Right hip skin lesion. POSTOPERATIVE DIAGNOSES: 1. Ventral hernia, incarcerated. 2. Umbilical hernia, reducible. 3. Right hip skin lesion. PROCEDURE PERFORMED: 1. Ventral hernia repair. 2. Umbilical hernia repair. 3. Excision, right hip skin lesion. ANESTHESIA: General endotracheal anesthesia. FLUIDS: 1400 mL crystalloid. ESTIMATED BLOOD LOSS: 5 mL. COMPLICATIONS: None. FINDINGS: A 3 cm hernia sac in the right upper quadrant containing incarcerated small bowel. The fascial defect at this site was only 1 cm in size. Umbilical hernia 4 mm in size containing reducible preperitoneal fat. 2 x 1 x 1 right hip skin lesion. INDICATIONS: The patient is a 43-year-old female who presents to me with 3 problems. Her first problem is a symptomatic ventral abdominal wall hernia. It is located in the right upper quadrant and just off midline. CT scan shows that it contained omental fat. The CT scan also showed an incidental umbilical hernia which was very small. She also has a right hip skin lesion that she would like to have removed since it has been growing in size. The patient will be undergoing a laparoscopic hysterectomy and would like these procedures done at the same time as that. I coordinated with the shift foreman and agree with a concomitant procedure. I explained my end of the procedure including the expected perioperative course and risks including bleeding, infection, or damage to surrounding structures. She verbalized understanding and wishes to proceed. PROCEDURE IN DETAIL: The patient was brought into the OR and placed on the OR table in supine position. A time-out was completed verifying the patient's name, age, date of , allergies, and procedure to be performed. General endotracheal anesthesia was induced. The right hip was prepped and draped in usual standard fashion. I anesthetized the area with 0.5% Marcaine plain. An elliptical incision was made along the skin lines around the pedunculated skin lesion. The skin lesion measured 2 cm x 1 cm in size. Using cautery, I undermined and the ellipse of skin from the underlying subcutaneous fat. The lesion that I removed including the skin lesion plus the skin that I removed measured 2 x 1 x 1 cm in size. It was sent to Pathology, labeled as right hip skin lesion. Hemostasis was achieved with electrocautery. The skin was then closed with interrupted 3-0 Vicryl sutures in the subcutaneous fat layer, and the skin was closed with a running 4-0 Monocryl stitch. Dermabond and sterile dressings were applied. The drapes were then taken down. The patient was then prepped and draped in lithotomy position for the hernia repair and hysterectomy portion of the case. Once she was adequately prepped and draped, we began the second portion of the procedure. I started by repairing the ventral hernia in the right upper quadrant. I had preoperatively marked and palpated the area. A horizontal incision was made over the top of this. Electrocautery was used to dissect down through the layers of the subcutaneous fat. A large hernia sac was encountered. This was thin-walled, and I could clearly see bowel looped inside the hernia sac. Green scissors were then used to complete my dissection of the hernia sac free from the surrounding subcutaneous fat layer down to the layer of the fascia. The hernia sac was entered to allow me to adequately dissect both around the hernia sac and inside it. There was a loop of small bowel that was adhered to the hernia sac itself. Using sharp dissection with the Metzenbaum scissors, I took down these adhesions. I was unable to reduce the small bowel back into the abdomen, so a small lionel was made in the fascia. This then allowed me to reduce the hernia sac and its contents into the abdomen safely. I then cleared away any tissue underlying the edges of my fascial defect. The fascial defect was measured and found to be 1 cm in size. I closed the fascial defect with interrupted 0 Ethibond sutures. I then irrigated the wound and achieved hemostasis using electrocautery. I then closed the subcutaneous fat layer with layers of interrupted 3-0 Vicryl sutures. The skin was closed with a running 4-0 Monocryl stitch. Dermabond was applied to the incision. I then turned my attention to the umbilical hernia. I anesthetized the periumbilical area with 0.5% Marcaine plain. A #15 blade was used to make an incision along the left lateral umbilical fold. Cautery was used to dissect down to the level of subcutaneous fat. I then cleared away the subcutaneous fat around the umbilical stalk. I then began my dissection along the umbilical stalk. The patient had extremely small hernia sac just to the left of the umbilical stalk. This was opened sharply. The hernia defect was 4 mm in size. Given that the shift foreman would be placing 1 of her 5 mm trocars here, the decision was made to use this as an entry point for the umbilical trocar. The shift foreman and her fellow surgeon then took over the case. They closed the fascial defect at the end of the case with 1 interrupted 0 Ethibond suture. Please see her note for further details. NICOLE LEE /[id number]
== END 2019-02-24 12:45 | disposition home or self-care (01) ==
LOC: MW.SDS 06:34 → MW.MS 14:22 → MW.SDS 02-24 12:45
PROVIDERS: ATTEND Obstetrics & Gynecology
DX: D25.9 Leiomyoma of uterus, unspecified (principal); N80.0 Endometriosis of uterus; N87.9 Dysplasia of cervix uteri, unspecified; D27.1 Benign neoplasm of left ovary; D17.23 Benign lipomatous neoplasm of skin and subcutaneous tissue of right leg; K42.9 Umbilical hernia without obstruction or gangrene; K43.6 Other and unspecified ventral hernia with obstruction, without gangrene; I10 Essential (primary) hypertension; E66.9 Obesity, unspecified; Z79.899 Other long term (current) drug therapy; Z68.30 Body mass index [BMI] 30.0-30.9, adult
CPT/HCPCS: 27047; 36415; 49561; 49585; 58571; 80048; 84703; 85025; 86850; 86900; 86901; 88104; 88173; 88300; 88305; 88309; A9270; J0330; J0690; J1100; J1170; J1885; J2001; J2250; J2270; J2370; J2405; J2704; J2765; J3010; J3490; J7030; 00944

== ENCOUNTER 2021-09-26 10:11 | Emergency (ER) | payer BC, OTHER ==
[2021-09-26] MEDS: Ketorolac 60 MG/2 ML SDV IM ONE (11:20)
[2021-09-26] MEDS: Orphenadrine 60 MG/2 ML Inj IM ONE (11:20)
[2021-09-26 12:10] LABS: CARBON DIOXIDE,CO2 24.6 mmol/L (21.0-32.0); POTASSIUM,K 3.4 mmol/L (3.5-5.1)
[2021-09-26] MEDS: Potassium Chloride 20 MEQ Tab.ER PO ONE (12:53)
== END 2021-09-26 13:21 | disposition home or self-care (01) ==
LOC: MW.ED 10:11
DX: M62.838 Other muscle spasm (principal); I10 Essential (primary) hypertension; E66.9 Obesity, unspecified; Z68.29 Body mass index [BMI] 29.0-29.9, adult
CPT/HCPCS: 36415; 73502; 80048; 81003; 81025; 82550; 83735; 85025; 96372; 99283; A9270; J1885; J2360

== ENCOUNTER 2024-11-17 08:02 | Emergency (ER) | payer BC, OTHER ==
[2024-11-17 09:02] LABS: BASOPHILS ABSOLUTE AUTO 0.06 K/uL (0.00-0.20); BASOPHILS PERCENT AUTO 1.1 % (0.0-1.0); EOSINOPHILS ABSOLUTE AUTO 0.25 K/uL (0.00-0.45); EOSINOPHILS PERCENT AUTO 4.6 % (0.0-6.0); IMMATURE GRAN ABSOLUTE AUTO 0.01 K/uL (0.00-0.05); IMMATURE GRAN PERCENT AUTO 0.2 % (0.0-0.4); LYMPHOCYTES ABSOLUTE AUTO 1.65 K/uL (1.00-4.80); LYMPHOCYTES PERCENT AUTO 30.2 % (24.0-44.0); MEAN PLATELET VOLUME 9.3 fL (9.4-12.3); MONOCYTES ABSOLUTE AUTO 0.67 K/uL (0.00-0.80); MONOCYTES PERCENT AUTO 12.2 % (0.0-8.0); NEUTROPHILS ABSOLUTE AUTO 2.83 K/uL (1.80-7.70); NEUTROPHILS PERCENT AUTO 51.7 % (41.0-71.0); NRBC ABSOLUTE 0.00 K/uL (0.00-0.02); NRBC PERCENT 0.0 /100WBC (0.0-0.2); PLATELET COUNT,PLT 318 K/uL (150-400); RED BLOOD CELL COUNT 4.68 M/uL (4.10-5.30); WHITE BLOOD CELL COUNT,WBC 5.47 K/uL (3.9-11.3)
[2024-11-17 09:19] LABS: A/G RATIO 0.9 (0.9-1.6); ALANINE AMINOTRANSFERASE,ALT 37.0 IU/L (14-63); ASPARTATE AMNIOTRANSFERASE,AST 18.0 IU/L (15-37); BILIRUBIN TOTAL 0.4 mg/dL (0.2-1.0); BLOOD UREA NITROGEN,BUN 13.0 mg/dL (7.0-18.0); CARBON DIOXIDE,CO2 30.0 mmol/L (21.0-32.0); CHLORIDE,CL 101.0 mmol/L (98-107); CREATININE 0.8 mg/dL (0.6-1.0); EST CRCL DRUG DOSING (CG) 77.38 mL/min; GLUCOSE RANDOM 89.0 mg/dL (74-106); POTASSIUM,K 3.2 mmol/L (3.5-5.1); PROTEIN TOTAL,TP 7.8 g/dL (6.4-8.2); SODIUM,NA 138.0 mmol/L (136-145)
[2024-11-17 09:33] LABS: ESTIMATED GFR 91.0 mL/min (>60)
[2024-11-17] MEDS: Potassium Chloride 20 MEQ Tab.ER PO ONE (10:32)
[2024-11-17] MEDS: hydrALAZINE 20 MG/ML SDV IVPUSH ONE ×2 (10:57→11:39)
[2024-11-17] MEDS: Alum Hydrox/Mag Hydrox/Simeth 15 ML, Lidocaine 2% 5 ML PO ONE (11:16)
== END 2024-11-17 13:59 | disposition home or self-care (01) ==
LOC: MW.ED 08:02
DX: R07.9 Chest pain, unspecified (principal); I10 Essential (primary) hypertension; Z79.899 Other long term (current) drug therapy
CPT/HCPCS: 36415; 71046; 80053; 83735; 84484; 84703; 85025; 93005; 96374; 96376; 99285; A9270; J0360; J3490; 93010; 99284